=== PATIENT | female | born 1965 | race Caucasian/White ===

== ENCOUNTER 2017-04-07 15:54 | Observation (INO) | payer BC, OTHER ==
[2017-04-07] VITALS (9 sets, daily range): BP systolic 110–152; BP diastolic 60–81; PULSE 69–92; RESP 18; TEMP 97.6–98.5; O2SAT 95–100
[~2017-04-07] VITALS: Ht 162.6 cm; Wt 100.0 kg
[~2017-04-07 15:54] MED LIST: AMBI10TA PO; BUSP15TA PO; CHLO25TA2 PO; DILT120C50 PO; LISI10TA3 PO; METH5TAB4 PO; XANA1TAB2 PO
--- NOTE | 2017-04-07 16:19 | PD ---
HPI Chief Complaint: Neuro Symptoms/ Deficits Time Seen by Provider: 16:15 Travel History International Travel<30 days: No Contact w/Intl Traveler<30days: No Traveled to known affect area: No History of Present Illness HPI 52 YO F with PMH of anxiety, HTN, current smoker presents to the ED for evaluation of a 4 day history of speech difficulties. The patient denies headaches, dizziness, vision changes, facial droop, unilateral weakness, fevers , chills, palpitations, chest pain, shortness of breath. She can identify no precipitating event. She states that she is able to think clearly, however unable to complete sentences or pronounce certain words. She states that when this happens she gets anxious which increases her symptoms. She states the symptoms onset gradually. She endorses compliance with her daily medications. She is followed by Dr. Elaine. [facility] Past Medical History Autoimmune Disease: No Cancer: No Cardiovascular Problems: Yes (HTN ) Endocrine: No Genitourinary: No Immune Disorder: No Neurologic: No Psychiatric: No Reproductive: No Respiratory: No Social History Tobacco Use: Yes (since age 20) Substance Use: No Allergies-Medications (Allergen,Severity, Reaction): Coded Allergies: atenolol (Unverified Allergy, Mild, itching, 04/07/17) Reported Meds & Prescriptions Reported Meds & Active Scripts Active Ambien (Zolpidem Tartrate) 10 Mg Tab 10 Mg PO HS PRN Buspirone (Buspirone HCl) 15 Mg Tab 15 Mg PO BID Reported Magnesium Gluconate 27 Mg (500 Mg) Tab 500 Mg PO DAILY Vitamin D3 (Cholecalciferol) 5,000 Unit Cap 5,000 Units PO DAILY Selenium 200 Mcg Tab 200 Mg PO DAILY Chlorthalidone 25 Mg Tab 25 Mg PO DAILY Cartia Xt (Diltiazem ER 24 HR) 120 Mg Caper 120 Mg PO DAILY Lisinopril 10 Mg Tab 10 Mg PO DAILY Methimazole 5 Mg Tab 5 Mg PO DAILY Review of Systems Except as stated in HPI: all other systems reviewed are Neg Physical Exam Narrative GENERAL: Well-nourished, well-developed obese white female in no acute distress. SKIN: Focused skin assessment warm/dry. HEAD: Normocephalic. Atraumatic. EYES: No scleral icterus. No injection or drainage. PERRLA. EOMI. NECK: Supple, trachea midline. No JVD or lymphadenopathy. CARDIOVASCULAR: Regular rate and rhythm without murmurs, gallops, or rubs. RESPIRATORY: Breath sounds clear and equal bilaterally. No accessory muscle use. GASTROINTESTINAL: Abdomen soft, non-tender, nondistended. Active bowel sounds MUSCULOSKELETAL: No cyanosis, or edema. NEUROLOGICAL: Awake and alert. Cranial nerves II through XII intact. Motor and sensory grossly within normal limits. Five out of 5 muscle strength in all muscle groups. The patient's speech is normal. However mid sentence she will stop speaking and trail off. BACK: Nontender without obvious deformity. No CVA tenderness. Data Data Last Documented VS Vital Signs Date Time Temp Pulse Resp B/P (MAP) Pulse Ox O2 Delivery O2 Flow Rate FiO2 04/07/17 18:39 74 18 111/69 (83) 100 Room Air 04/07/17 15:57 98.5 Orders Orders Complete Blood Count With Diff (04/07/17 16:17) Comprehensive Metabolic Panel (04/07/17 16:17) Magnesium (Mg) (04/07/17 16:17) Prothrombin Time / Inr (Pt) (04/07/17 16:17) Urinalysis - C+S If Indicated (04/07/17 16:17) Ct Brain W/O Iv Contrast(Rout) (04/07/17 16:17) Ecg Monitoring (04/07/17 16:17) Iv Access Insert/Monitor (04/07/17 16:17) Oximetry (04/07/17 16:17) Sodium Chloride 0.9% Flush (Ns Flush) (04/07/17 16:30) Electrocardiogram (04/07/17 ) Troponin I (04/07/17 16:27) Ckmb (Isoenzyme) Profile (04/07/17 16:27) Potassium Chloride (Kcl) (04/07/17 18:45) Admit Order (Ed Use Only) (04/07/17 18:43) Labs Laboratory Tests Test 04/07/17 16:25 04/07/17 18:37 White Blood Count 9.2 TH/MM3 Red Blood Count 4.79 MIL/MM3 Hemoglobin 16.3 GM/DL Hematocrit 45.5 % Mean Corpuscular Volume 94.9 FL Mean Corpuscular Hemoglobin 33.9 PG Mean Corpuscular Hemoglobin Concent 35.8 % Red Cell Distribution Width 13.1 % Platelet Count 198 TH/MM3 Mean Platelet Volume 9.8 FL Neutrophils (%) (Auto) 55.6 % Lymphocytes (%) (Auto) 36.6 % Monocytes (%) (Auto) 5.5 % Eosinophils (%) (Auto) 1.2 % Basophils (%) (Auto) 1.1 % Neutrophils # (Auto) 5.1 TH/MM3 Lymphocytes # (Auto) 3.4 TH/MM3 Monocytes # (Auto) 0.5 TH/MM3 Eosinophils # (Auto) 0.1 TH/MM3 Basophils # (Auto) 0.1 TH/MM3 CBC Comment DIFF FINAL Differential Comment Prothrombin Time 11.2 SEC Prothromb Time International Ratio 1.0 RATIO Blood Urea Nitrogen 12 MG/DL Creatinine 0.98 MG/DL Random Glucose 100 MG/DL Total Protein 8.1 GM/DL Albumin 4.3 GM/DL Calcium Level 9.5 MG/DL Magnesium Level 2.3 MG/DL Alkaline Phosphatase 101 U/L Aspartate Amino Transf (AST/SGOT) 17 U/L Alanine Aminotransferase (ALT/SGPT) 25 U/L Total Bilirubin 0.4 MG/DL Sodium Level 138 MEQ/L Potassium Level 3.2 MEQ/L Chloride Level 100 MEQ/L Carbon Dioxide Level 29.0 MEQ/L Anion Gap 9 MEQ/L Estimat Glomerular Filtration Rate 60 ML/MIN Total Creatine Kinase 97 U/L Troponin I LESS THAN 0.02 NG/ML Urine Color LIGHT-YELLOW Urine Turbidity CLEAR Urine pH 6.5 Urine Specific Calhoun 1.005 Urine Protein NEG mg/dL Urine Glucose (UA) NEG mg/dL Urine Ketones NEG mg/dL Urine Occult Blood NEG Urine Nitrite NEG Urine Bilirubin NEG Urine Urobilinogen LESS THAN 2.0 MG/DL Urine Leukocyte Esterase NEG Urine RBC LESS THAN 1 /hpf Urine WBC LESS THAN 1 /hpf Urine Squamous Epithelial Cells 1 /hpf Urine Amorphous Sediment RARE Microscopic Urinalysis Comment CULT NOT INDICATED MDM Medical Decision Making Medical Screen Exam Complete: Yes Emergency Medical Condition: Yes Differential Diagnosis anxiety versus TIA versus CVA versus other Narrative Course 52 YO F with PMH of anxiety, HTN, current smoker presents to the ED for evaluation of a 4 day history of aphasia. She can identify no precipitating event. She states that she is able to think clearly, however unable to complete sentences or pronounce certain words. She states that when this happens she gets anxious which increases her symptoms. She is followed by Dr. Elaine. Vitals reviewed. On exam the patient does seem somewhat aphasic and anxious about this. No focal neuro deficits noted. EKG rate 76, sinus rhythm. Incomplete RBBB. Normal axis. No ST changes. Reviewed by Dr. Castillo. Cardiac enzymes negative 1. CBC: WBC 9.2. Hemoglobin 16.3. Coags: INR 1.0. CMP: Potassium 3.2, replaced with 40 mEq orally. UA no culture indicated. CT brain: normal radiology read I spoke with the patient regarding the results of the workup. She does not want to be admitted this time. I explained the risk of ischemic stroke, carotid stenosis. After a brief discussion the patient decided that she would stay for TIA workup. I discussed with Dr. Wiggins, resident, who agrees to accept the patient to the medicine service under Dr. Rueda. Please see medicine notes for disposition. Disposition: 07 AGAINST MEDICAL ADVICE Condition: Stable Caron Kim Apr 07, 2017 16:19
[2017-04-07] MEDS ORDERED: SODIUM CHLORIDE 0.9% FLUSH 10 ML FLUSH IVF PRN (16:30)
[2017-04-07] MEDS ORDERED: MAGN500T5 PO (16:32)
[2017-04-07] MEDS ORDERED: CHOL5000 PO (16:32)
[2017-04-07] MEDS ORDERED: CHLO25TA2 PO (16:32)
[2017-04-07] MEDS ORDERED: CART120C PO (16:32)
[2017-04-07] MEDS ORDERED: SELE200T17 PO (16:32)
[2017-04-07 16:36] LABS: AUTOMATED NEUTROPHIL # 5.1 TH/MM3 (1.8-7.7); BASOPHIL # 0.1 TH/MM3 (0-0.2); BASOPHIL % 1.1 % (0.0-2.0); EOSINOPHIL # 0.1 TH/MM3 (0-0.4); EOSINOPHIL % 1.2 % (0.0-4.0); HEMATOCRIT 45.5 % (35.0-46.0); HEMO FLAGS DIFF FINAL; LYMPH % 36.6 % (9.0-44.0); LYMPHOCYTE # 3.4 TH/MM3 (1.0-4.8); MEAN CELL VOLUME 94.9 FL (80.0-100.0); MEAN CORPUSCULAR HEMOGLOBIN 33.9 PG (27.0-34.0); MEAN CORPUSCULAR HGB CONC 35.8 % (32.0-36.0); MONO % 5.5 % (0.0-8.0); NEUT % 55.6 % (16.0-70.0); PLATELET COUNT 198 TH/MM3 (150-450); RED BLOOD COUNT 4.79 MIL/MM3 (4.00-5.30); RED CELL DISTRIBUTION WIDTH 13.1 % (11.6-17.2); WHITE BLOOD COUNT 9.2 TH/MM3 (4.0-11.0)
[2017-04-07 16:43] LABS: PROTHROMBIN TIME - PATIENT 11.2 SEC (9.8-11.6)
[2017-04-07 16:53] LABS: ALT (GPT) 25 U/L (10-53); ANION GAP 9 MEQ/L (5-15); AST (GOT) 17 U/L (15-37); BLOOD UREA NITROGEN 12 MG/DL (7-18); CHLORIDE 100 MEQ/L (98-107); GLOMERULAR FILTRATION RATE 60 ML/MIN (>89); MAGNESIUM 2.3 MG/DL (1.5-2.5); POTASSIUM 3.2 MEQ/L (3.5-5.1); SODIUM (NA) 138 MEQ/L (136-145)
[2017-04-07 16:56] LABS: ALKALINE PHOSPHATASE 101 U/L (45-117); TOTAL BILIRUBIN ADULT 0.4 MG/DL (0.2-1.0)
[2017-04-07 17:04] LABS: CREATINE KINASE 97 U/L (26-192)
--- NOTE | 2017-04-07 17:20 | RADRPT ---
EXAM DATE/TIME: 04/07/2017 16:57 [facility] COMPARISON: No previous studies available for comparison. INDICATIONS : Dizziness with slurred speech. RADIATION DOSE: 30.82 CTDIvol (mGy) MEDICAL HISTORY : Hypertension. SURGICAL HISTORY : Hysterectomy. ENCOUNTER: Initial ACUITY: 1 day PAIN SCALE: 0/10 LOCATION: cranial TECHNIQUE: Multiple contiguous axial images were obtained of the head. Using automated exposure control and adj ustment of the mA and/or kV according to patient size, radiation dose was kept as low as reasonably a chievable to obtain optimal diagnostic quality images. DICOM format image data is available electro nically for review and comparison. FINDINGS: CEREBRUM: The ventricles are normal for age. No evidence of midline shift, mass lesion, hemorrhage or acute in farction. No extra-axial fluid collections are seen. POSTERIOR FOSSA: The cerebellum and brainstem are intact. The 4th ventricle is midline. The cerebellopontine angle i s unremarkable. EXTRACRANIAL: The visualized portion of the orbits is intact. SKULL: The calvaria is intact. No evidence of skull fracture. CONCLUSION: Normal examination. Kenney Estrella Jr., MD on April 07, 2017 at 17:18 Board Certified Radiologist. This report was verified electronically.
[2017-04-07] MEDS ORDERED: POTASSIUM CHLORIDE 20 MEQ CONTROLLED RELEASE TAB PO ONE (18:45)
[2017-04-07 18:51] LABS: BLOOD, URINE NEG (NEG); COMMENT (UR) CULT NOT INDICATED; CULTURE IF INDICATED CULT NOT INDICATED; GLUCOSE,URINE NEG (NEG); KETONE, URINE NEG (NEG); NITRITE,URINE NEG (NEG); PH, URINE 6.5 (5.0-8.5); SQUAMOUS EPITHELIAL CELL URINE 1 /hpf (0-5); URINE COLOR LIGHT-YELLOW (YELLW/STRAW)
--- NOTE | 2017-04-07 18:55 | HHI.HP ---
[facility] Service Family Medicine Primary Care Physician Unknown Admission Diagnosis aphasia Diagnoses: International Travel<30 Days: No Contact w/Intl Traveler<30days: No Known Affected Area: No History of Present Illness 52 year old female presents with Broca aphasia. Symptoms started 3 days ago. She feels like she gets "tongue tied". She knows what she wants to say, and the words are in her mind, but she cannot get them out of her mouth. She will often start a sentence but then have an inability to complete the sentence. The onset was gradual and she feels like it is not getting better. She has no other symptoms with it and otherwise feels fine. She has no blurry vision, headaches, upper or lower extremity weakness or numbness/tingling, difficulty understanding speech. She is able to text message without difficulty. She can walk and drive without difficulty. She has no runny nose, sore throat, weight loss, night sweats, chest pain, shortness of breath, palpitations, abdominal pain, nausea, vomiting, diarrhea, calf tenderness or swelling. She has no history of seizures. She does not feel generally weak and unwell. She states she has no other symptoms besides the aphasia. She does not report a history of arrhythmias. She does have hyperthyroidism and hypertension, and is also a smoker. Her hyperthyroidism is controlled with methimazole. (Jalen Wiggins MD R3) Review of Systems Constitutional: DENIES: Fever, Weight gain, Weight loss, Chills, Change in appetite, Night Sweats Endocrine: DENIES: Polyuria, Polyphagia Eyes: DENIES: Blurred vision, Diplopia, Vision loss, Double Vision Ears, nose, mouth, throat: DENIES: Tinnitus, Nasal discharge, Ear Pain, Running Nose, Odynophagia Respiratory: DENIES: Cough, Wheezing, Sputum production, Shortness of breath Cardiovascular: DENIES: Chest pain, Syncope Gastrointestinal: DENIES: Abdominal pain, Black stools, Bloody stools, Constipation, Diarrhea, Nausea, Vomiting, Difficulty Swallowing Genitourinary: DENIES: Urinary incontinence, Dysuria Musculoskeletal: DENIES: Joint pain, Stiffness, Joint Swelling Integumentary: DENIES: Rash Hematologic/lymphatic: DENIES: Lymphadenopathy Immunologic/allergic: DENIES: Eczema Neurologic: COMPLAINS OF: Speech Problems, DENIES: Headache, Paresthesias, Seizures, Tremor, Poor Balance Psychiatric: COMPLAINS OF: Anxiety, DENIES: Mood changes, Depression, Hallucinations, Agitation (Jalen Wiggins MD R3) Past Family Social History Past Medical History hyperthyroidism: Graves disease, on methimazole hypertension Anxiety Smoker Obesity: BMI 37.8 Past Surgical History Cervical disk surgery C7 Reported Medications Reported Meds & Active Scripts Active Ambien (Zolpidem Tartrate) 10 Mg Tab 10 Mg PO HS PRN Buspirone (Buspirone HCl) 15 Mg Tab 15 Mg PO BID Reported Magnesium Gluconate 27 Mg (500 Mg) Tab 500 Mg PO DAILY Vitamin D3 (Cholecalciferol) 5,000 Unit Cap 5,000 Units PO DAILY Selenium 200 Mcg Tab 200 Mg PO DAILY Chlorthalidone 25 Mg Tab 25 Mg PO DAILY Cartia Xt (Diltiazem ER 24 HR) 120 Mg Caper 120 Mg PO DAILY Lisinopril 10 Mg Tab 10 Mg PO DAILY Methimazole 5 Mg Tab 5 Mg PO DAILY (Jalen Wiggins MD R3) Allergies: Coded Allergies: atenolol (Unverified Allergy, Mild, itching, 04/07/17) Active Ordered Medications Inpatient Medications Aspirin (Aspirin Chew) 81 mg DAILY PO Last administered on 04/07/17 20:19; Start 04/07/17 at 19:45 Bisacodyl (Dulcolax Supp) 10 mg DAILY PRN RECTAL SEVERE CONSITIPATION; Start 04/07/17 at 19:45 Enalaprilat (Vasotec Inj) 1.25 mg Q4H PRN IV PUSH For SBP > 220 or DBP > 120; Start 04/07/17 at 19:45 Enoxaparin Sodium (Lovenox Inj) 40 mg Q24H SQ Last administered on 04/07/17 20:20; Start 04/07/17 at 20:00 Lactulose (Lactulose Liq) 30 ml DAILY PRN PO SEVERE CONSITIPATION; Start 04/07 at 19:45 Magnesium Hydroxide (Milk Of Magnesia Liq) 30 ml Q12H PRN PO Mild constipation ; Start 04/07/17 at 19:45 Naloxone HCl (Narcan Inj) 0.4 mg UNSCH PRN IV PUSH SEE LABEL COMMENTS; Start 04/07/17 at 19:45 Potassium Chloride (KCl) 40 meq ONCE ONCE PO Last administered on 04/07/17 18:55; Start 04/07/17 at 18:45; Stop 04/07/17 at 18:46; Status DC Pravastatin Sodium (Pravachol) 40 mg HS PO Last administered on 04/07/17 21: 08; Start 04/07/17 at 21:00 Senna/Docusate Sodium (Kim-Colace) 1 tab BID PO ; Start 04/07/17 at 21:00 Sennosides (Senokot) 17.2 mg Q12H PRN PO Moderate constipation; Start at 19:45 Sodium Chloride (NS Flush) 2 ml BID IV FLUSH Last administered on 04/07/17 21 :08; Start 04/07/17 at 21:00 Family History Mom: heart disease Father: of heart attack age 57 No strokes or aneurysms Sister with diabetes Social History Smokes 1/2 PPD Alcohol: None Drug use: None Lives with Employment: none From [place], moved here 5 years ago Moved here for work Used to work as restaurant greeter (Jalen Wiggins MD R3) Physical Exam Vital Signs Vital Signs Date Time Temp Pulse Resp B/P (MAP) Pulse Ox O2 Delivery O2 Flow Rate FiO2 04/07/17 18:39 74 18 111/69 (83) 100 Room Air 04/07/17 16:26 85 18 98 Room Air 04/07/17 16:17 99 20 97 Room Air 04/07/17 16:17 92 18 152/72 (98) 97 Room Air 04/07/17 16:13 84 18 152/72 (98) 97 04/07/17 15:57 98.5 88 18 149/75 (99) 97 Room Air Physical Exam General: Sitting up in a chair, no distress Skin: No rashes or lesions HEENT: Normocephalic, no conjunctivitis, no nasal discharge, normal pharynx Neck: No thyromegaly or lymphadenopathy CV: RRR, no murmurs, rubs, or gallops. Normal pulses. Normal capillary refill. BP normal while in room. Lungs: CTAB, no respiratory distress, breathing room air Abdomen: Soft, nontender, nondistended, normal bowel sounds, no masses palpated Ext: No swelling or calf tenderness, negative Amador's sign Neuro: Awake, alert, CN intact, EOMI, PERRLA. Strength and sensation are normal distally. She has a normal gait, normal tandem walk, normal heel to pineda, normal finger to nose, negative Romberg test. She has no difficulty understanding speech. She has noted difficulty producing speech. Specifically, she often starts a sentence and gets stuck on a particular word she wants to say , but cannot seem to get it out. She gets noticeably frustrated when this happens. She states she knows what she wants to stay but cannot seem to get it out. Laboratory Laboratory Tests Test 04/07/17 16:25 04/07/17 18:37 White Blood Count 9.2 Red Blood Count 4.79 Hemoglobin 16.3 Hematocrit 45.5 Mean Corpuscular Volume 94.9 Mean Corpuscular Hemoglobin 33.9 Mean Corpuscular Hemoglobin Concent 35.8 Red Cell Distribution Width 13.1 Platelet Count 198 Mean Platelet Volume 9.8 Neutrophils (%) (Auto) 55.6 Lymphocytes (%) (Auto) 36.6 Monocytes (%) (Auto) 5.5 Eosinophils (%) (Auto) 1.2 Basophils (%) (Auto) 1.1 Neutrophils # (Auto) 5.1 Lymphocytes # (Auto) 3.4 Monocytes # (Auto) 0.5 Eosinophils # (Auto) 0.1 Basophils # (Auto) 0.1 CBC Comment DIFF FINAL Differential Comment Prothrombin Time 11.2 Prothromb Time International Ratio 1.0 Blood Urea Nitrogen 12 Creatinine 0.98 Random Glucose 100 Total Protein 8.1 Albumin 4.3 Calcium Level 9.5 Magnesium Level 2.3 Alkaline Phosphatase 101 Aspartate Amino Transf (AST/SGOT) 17 Alanine Aminotransferase (ALT/SGPT) 25 Total Bilirubin 0.4 Sodium Level 138 Potassium Level 3.2 Chloride Level 100 Carbon Dioxide Level 29.0 Anion Gap 9 Estimat Glomerular Filtration Rate 60 Total Creatine Kinase 97 Troponin I LESS THAN 0.02 (Jalen Wiggins MD R3) Result Diagram: 04/07/17 1625 04/07/17 1625 Imaging Last [address] 04/07/17 1617 Signed Impressions: Service Date/Time: Friday, April 07, 2017 16:57 - CONCLUSION: Normal examination. Kenney Estrella Jr., MD (Jalen Wiggins MD R3) Septic Shock Reassessment Heart: Regular rate and rhythm Lungs: Clear Skin: Warm Capillary Refill: <2 seconds (Jalen Wiggins MD R3) Caprini VTE Risk Assessment Caprini VTE Risk Assessment: Mod/High Risk (score >= 2) Caprini Risk Assessment Model Point Value = 1 Point Value = 2 Point Value = 3 Point Value = 5 Age 41-60 Minor surgery BMI > 25 kg/m2 Swollen legs Varicose veins or History of unexplained or recurrent spontaneous Oral contraceptives or hormone replacement Sepsis (< 1 month) Serious lung disease, including pneumonia (< 1 month) Abnormal pulmonary function Acute myocardial infarction Congestive heart failure (< 1 month) History of inflammatory bowel disease Medical patient at bed rest Age 61-74 Arthroscopic surgery Major open surgery (> 45 min) Laparoscopic surgery (> 45 min) Malignancy Confined to bed (> 72 hours) Immobilizing plaster cast Central venous access Age >= 75 History of VTE Family history of VTE Factor V Leiden Prothrombin [id number] Lupus anticoagulant Anticardiolipin antibodies Elevated serum homocysteine Heparin-induced thrombocytopenia Other congenital or acquired thrombophilia Stroke (< 1 month) Elective arthroplasty Hip, pelvis, or leg fracture Acute spinal cord injury (< 1 month) Prophylaxis Regimen Total Risk Factor Score Risk Level Prophylaxis Regimen 0-1 Low Early ambulation 2 Moderate Order ONE of the following: *Sequential Compression Device (SCD) *Heparin 5000 units SQ BID 3-4 Higher Order ONE of the following medications: *Heparin 5000 units SQ TID *Enoxaparin/Lovenox 40 mg SQ daily (WT < 150 kg, CrCl > 30 mL/min) *Enoxaparin/Lovenox 30 mg SQ daily (WT < 150 kg, CrCl > 10-29 mL/min) *Enoxaparin/Lovenox 30 mg SQ BID (WT < 150 kg, CrCl > 30 mL/min) AND/OR *Sequential Compression Device (SCD) 5 or more Highest Order ONE of the following medications: *Heparin 5000 units SQ TID (Preferred with Epidurals) *Enoxaparin/Lovenox 40 mg SQ daily (WT < 150 kg, CrCl > 30 mL/min) *Enoxaparin/Lovenox 30 mg SQ daily (WT < 150 kg, CrCl > 10-29 mL/min) *Enoxaparin/Lovenox 30 mg SQ BID (WT < 150 kg, CrCl > 30 mL/min) AND *Sequential Compression Device (SCD) (Jalen Wiggins MD R3) Assessment and Plan Assessment and Plan 52 year old female with history of hyperthyroidism, hypertension, and smoking presents with 3 day history of Broca aphasia Code Status FULL CODE Discussed Condition With Will discuss with Dr. Patricio (Jalen Wiggins MD R3) Attending Attestation THIS CASE WAS DISCUSSED WITH THE RESIDENT PHYSICIAN. I HAVE REVIEWED THE RECORD AND AGREE WITH THE ABOVE NOTE AND PLAN OF CARE WAS DISCUSSED. I HAVE AUTHORIZED THE ORDER FOR PLACEMENT IN OUT-PATIENT OBSERVATION STATUS. (Flower Patricio MD) Problem List: (1) Broca dysphasia ICD Codes: R47.02 - Dysphasia Status: Acute Plan: 3 day history of Broca aphasia, concerning for acute cerebrovascular accident. CT head without acute abnormality. - Monitor vital signs and neurological status - Obtain MRI/MRA of the brain - Consult neurology, appreciate recommendations - Aspirin 81 mg daily - Start atorvastatin 40 mg daily - Bedside swallow evaluation before diet, then heart healthy diet - Cardiac telemetry to detect any underlying arrhythmias - Echocardiogram to assess cardiac function and structure - Check lipid panel - Check basic coag panel - Counseling on smoking, healthy diet, elevated BMI - Speech therapy consulted for aphasia - Physical therapy/occupational therapy consulted (2) Hypertension ICD Codes: I10 - Hypertension Status: Chronic Plan: - Diltiazem 120 mg daily - Lisinopril 10 mg daily (3) Smoker ICD Codes: F17.200 - Nicotine dependence, unspecified, uncomplicated Status: Chronic Plan: 1/2 pack per day smoker - Counseling to quit smoking, especially with possible acute stroke (4) Obesity (BMI 30-39.9) ICD Codes: E66.9 - Obesity, unspecified Status: Chronic Plan: Counseling on nutrition and exercise in context of possible acute stroke (5) Hyperthyroidism ICD Codes: E05.90 - Thyrotoxicosis, unspecified without thyrotoxic crisis or storm Status: Chronic Plan: - Check TSH - Continue methimazole 5 mg daily (6) Anxiety ICD Codes: F41.9 - Anxiety Status: Chronic Plan: - Continue Buspar 15 mg bid (7) Nutrition, metabolism, and development symptoms ICD Codes: R63.8 - Other symptoms and signs concerning food and fluid intake Status: Acute Plan: Heart healthy diet NPO until passes swallow test Speech therapy on board Electrolytes normal No indication for IV fluids (8) No contraindication to deep vein thrombosis (DVT) prophylaxis ICD Codes: Z78.9 - Other specified health status Status: Acute Plan: Enoxaparin 40 mg daily Encourage ambulation Work with physical therapy (Jalen Wiggins MD R3) Jalen Wiggins MD R3 Apr 07, 2017 18:55 Flower Patricio MD Apr 08, 2017 11:54
[2017-04-07] MEDS ORDERED: ENALAPRILAT 1.25 MG/ML VIAL IV PUSH PRN (19:45)
[2017-04-07] MEDS ORDERED: MAGNESIUM HYDROXIDE SUSP 30 ML CUP PO PRN (19:45)
[2017-04-07] MEDS ORDERED: SENNOSIDES 8.6 MG TAB PO PRN (19:45)
[2017-04-07] MEDS ORDERED: BISACODYL 10 MG SUPP RECTAL PRN (19:45)
[2017-04-07] MEDS ORDERED: NALOXONE HCL 0.4 MG/ML AMP IV PUSH PRN (19:45)
[2017-04-07] MEDS ORDERED: LACTULOSE SYRUP 20 GM/30 ML CUP PO PRN (19:45)
[2017-04-07] MEDS ORDERED: SODIUM CHLORIDE 0.9% FLUSH 10 ML FLUSH IV FLUSH PRN (19:45)
[2017-04-07] MEDS ORDERED: ENOXAPARIN SODIUM 40 MG/0.4 ML SYRINGE SQ SCH (20:00)
[2017-04-07] MEDS: ASPIRIN 81 MG CHEW TAB PO SCH (20:19)
[2017-04-07] MEDS: PRAVASTATIN SOD 40 MG TAB PO SCH ×2 (21:00→21:08)
[2017-04-07] MEDS: DOCUSATE SODIUM 50 MG/SENNA 8.6 MG TAB PO SCH (21:00)
[2017-04-07] MEDS: SODIUM CHLORIDE 0.9% FLUSH 10 ML FLUSH IV FLUSH SCH (21:08)
[2017-04-07] MEDS ORDERED: ZOLPIDEM TARTRATE 10 MG TAB PO PRN (21:15)
[2017-04-07] MEDS ORDERED: PILL SPLITTER OTHER PRN (22:00)
--- NOTE | 2017-04-07 22:42 | RADRPT ---
EXAM DATE/TIME: 04/07/2017 21:52 [facility] COMPARISON: No previous studies available for comparison. INDICATIONS : CVA. Expressive aphasia. MEDICAL HISTORY : None. SURGICAL HISTORY : Discectomy, cervical. ENCOUNTER: Subsequent ACUITY: 3 day PAIN SCORE: 0/10 LOCATION: cranial TECHNIQUE: Multiplanar, multisequence MRI of the brain was performed without contrast. FINDINGS: CEREBRUM: The ventricles are normal for age. No evidence of midline shift, mass lesion, hemorrhage or acute in farction. No extraaxial fluid collections are seen. The pituitary gland and suprasellar cistern are normal in configuration. WHITE MATTER: No significant signal abnormalities are seen in the white matter. POSTERIOR FOSSA: The cerebellum and brainstem are intact. The 4th ventricle is midline. The cerebellopontine angle is unremarkable. The cerebellar tonsils are normal in position. DIFFUSION IMAGING: No focal areas of restricted diffusion are seen. No evidence of acute infarction. EXTRACRANIAL: The visualized portions of the orbits and paranasal sinuses are unremarkable. CONCLUSION: Negative noncontrast MRI of the brain; no evidence of acute infarction. Kenney Sihna MD on April 07, 2017 at 22:40 Board Certified Radiologist. This report was verified electronically.
--- NOTE | 2017-04-07 22:58 | RADRPT ---
EXAM DATE/TIME: 04/07/2017 21:52 [facility] COMPARISON: No previous studies available for comparison. INDICATIONS : Stroke. Expressive aphasia. MEDICAL HISTORY : None. SURGICAL HISTORY : Discectomy, cervical. ENCOUNTER: Subsequent ACUITY: 3 day PAIN SCORE: 0/10 LOCATION: cranial Please note a normal MRA of the brain does not entirely exclude the possibility of a small aneurysm, nor the possibility of distal intracranial vessel disease. TECHNIQUE: 3D time of flight MRA was performed. Source images, multiplanar STS MIP, and 3D volume MIP reconstru ctions were reviewed. FINDINGS: There is excellent visualization of the major intracranial arteries out to the second-order branch ve ssels. There is no evidence for aneurysm, vessel truncation or stenosis, and no evidence for vascula r malformation. No flow seen in the anterior communicating artery or right PCOM. CONCLUSION: 1. No evidence of vessel truncation or aneurysm. 2. Incomplete red devil of [place]. Kenney Sinha MD on April 07, 2017 at 22:55 Board Certified Radiologist. This report was verified electronically.
[2017-04-08 03:47] VITALS: BP 106/59; PULSE 66; RESP 18; TEMP 98.2; O2SAT 96
[2017-04-08 05:20] LABS: AUTOMATED NEUTROPHIL # 2.7 TH/MM3 (1.8-7.7); BASOPHIL # 0.1 TH/MM3 (0-0.2); BASOPHIL % 1.8 % (0.0-2.0); EOSINOPHIL # 0.2 TH/MM3 (0-0.4); EOSINOPHIL % 2.1 % (0.0-4.0); HEMATOCRIT 40.5 % (35.0-46.0); HEMO FLAGS DIFF FINAL; LYMPH % 54.4 % (9.0-44.0); LYMPHOCYTE # 4.2 TH/MM3 (1.0-4.8); MEAN CELL VOLUME 95.1 FL (80.0-100.0); MEAN CORPUSCULAR HEMOGLOBIN 33.5 PG (27.0-34.0); MEAN CORPUSCULAR HGB CONC 35.3 % (32.0-36.0); MONO % 6.6 % (0.0-8.0); NEUT % 35.1 % (16.0-70.0); PLATELET COUNT 179 TH/MM3 (150-450); RED BLOOD COUNT 4.26 MIL/MM3 (4.00-5.30); RED CELL DISTRIBUTION WIDTH 13.3 % (11.6-17.2); WHITE BLOOD COUNT 7.8 TH/MM3 (4.0-11.0)
[2017-04-08 06:11] LABS: ALKALINE PHOSPHATASE 83 U/L (45-117); ALT (GPT) 21 U/L (10-53); ANION GAP 9 MEQ/L (5-15); AST (GOT) 12 U/L (15-37); BICARBONATE 26.1 MEQ/L (21.0-32.0); BLOOD UREA NITROGEN 12 MG/DL (7-18); CHLORIDE 103 MEQ/L (98-107); GLOMERULAR FILTRATION RATE 75 ML/MIN (>89); HDL CHOLESTEROL 52.3 MG/DL (40.0-60.0); LDL CHOLESTEROL 117 MG/DL (0-99); POTASSIUM 3.6 MEQ/L (3.5-5.1); SODIUM (NA) 138 MEQ/L (136-145); TOTAL BILIRUBIN ADULT 0.6 MG/DL (0.2-1.0)
[2017-04-08 07:30] VITALS: PULSE 74
[2017-04-08 07:46] VITALS: BP 126/70; PULSE 69; RESP 18; TEMP 98.1; O2SAT 97
[2017-04-08] MEDS ORDERED: SELENIUM 200 MG PO SCH (09:00)
[2017-04-08] MEDS ORDERED: NON-FORMULARY DRUG (Magnesium Gluconate 500 MG) PO SCH (09:00)
[2017-04-08] MEDS ORDERED: METHIMAZOLE 5 MG TAB PO SCH (09:00)
[2017-04-08] MEDS ORDERED: busPIRone HCL 5 MG TAB PO SCH (09:00)
[2017-04-08] MEDS ORDERED: CHOLECALCIFEROL (VIT D3) 5000 UNIT CAP PO SCH (09:00)
[2017-04-08] MEDS ORDERED: NON-FORMULARY DRUG PO SCH (09:00)
[2017-04-08] MEDS ORDERED: DILTIAZEM-CD 120 MG CAP ER PO SCH (09:00)
[2017-04-08] MEDS ORDERED: LISINOPRIL 10 MG TAB PO SCH (09:00)
[2017-04-08] MEDS: ASPIRIN 81 MG CHEW TAB PO SCH (09:27)
[2017-04-08] MEDS: SODIUM CHLORIDE 0.9% FLUSH 10 ML FLUSH IV FLUSH SCH (09:29)
[2017-04-08] MEDS: DOCUSATE SODIUM 50 MG/SENNA 8.6 MG TAB PO SCH (09:37)
--- NOTE | 2017-04-08 10:13 | HHI.FPPN ---
Problem Problem List: (1) Speaking difficulty (2) Hypertension (3) Insomnia (4) Anxiety Subjective Subjective 52 y/o woman with history of 3 days of some difficulty in saying the words she is thinking. When not able to say the word she is able to write or text the correct word. She was admitted for observation and neurologic workup for this issue. She has no h/o CVA and she has no other neurologic symptoms -- denies weakness, numbness, paraesthesias, change in vision, change in gait, no memory issues. She denies any systemic illness symptoms like fever/chills/sweats and denies any neurologic history. At the time of this evaluation today she is symptom free. Has no concerns and her speech is back to normal. ROS negative except as listed above Past Medical History hyperthyroidism: Graves disease, on methimazole hypertension Anxiety Smoker Obesity: BMI 37.8 Past Surgical History Cervical disk surgery C7 SOCIAL: tobacco 1/2ppd, no ETOH or illicits not currently working Please see the resident H and P for further details regarding the PMH/PSH/ SOCIAL history Hospital Objective Objective Last Impressions Carotid Artery Ultrasound 04/08/17 0000 Signed Impressions: Service Date/Time: Saturday, April 08, 2017 10:06 - CONCLUSION: 1. No significant carotid flow-limiting stenosis. 2. Antegrade vertebral artery flow bilaterally. Luis Angel MD Head CT 04/07/17 1617 Signed Impressions: Service Date/Time: Friday, April 07, 2017 16:57 - CONCLUSION: Normal examination. Kenney Estrella Jr., MD Head Magnetic Resonance Angiography 04/07/17 0000 Signed Impressions: Service Date/Time: Friday, April 07, 2017 21:52 - CONCLUSION: 1. No evidence of vessel truncation or aneurysm. 2. Incomplete osage of [place]. Kenney Sinha MD Brain MRI 04/07/17 0000 Signed Impressions: Service Date/Time: Friday, April 07, 2017 21:52 - CONCLUSION: Negative noncontrast MRI of the brain; no evidence of acute infarction. Kenney Sinha MD Laboratory Tests - Abnormals Test 04/07/17 16:25 04/07/17 18:37 04/08/17 04:15 Hemoglobin 16.3 GM/DL Potassium Level 3.2 MEQ/L Estimat Glomerular Filtration Rate 60 ML/MIN 75 ML/MIN Troponin I LESS THAN 0.02 NG/ML Lymphocytes (%) (Auto) 54.4 % Aspartate Amino Transf (AST/SGOT) 12 U/L Triglycerides Level 191 MG/DL Cholesterol Level 207 MG/DL LDL Cholesterol 117 MG/DL Vital Signs 04/07/17 04/07/17 04/07/17 04/07/17 15:57 16:13 16:17 16:17 Temp 98.5 Pulse 88 84 92 99 Resp 18 18 18 20 B/P (MAP) 149/75 (99) 152/72 (98) 152/72 (98) Pulse Ox 97 97 97 97 O2 Delivery Room Air Room Air Room Air 04/07/17 04/07/17 04/07/17 04/07/17 16:26 18:39 20:40 20:48 Pulse 85 74 75 Resp 18 18 18 B/P (MAP) 111/69 (83) 122/64 (83) Pulse Ox 98 100 97 O2 Delivery Room Air Room Air Room Air 04/07/17 04/07/17 04/07/17 04/08/17 21:02 23:24 23:44 03:47 Temp 98.2 97.6 98.2 Pulse 77 78 69 66 Resp 18 18 18 B/P (MAP) 135/81 (99) 110/60 (77) 106/59 (75) Pulse Ox 96 95 96 04/08/17 04/08/17 07:30 07:46 Temp 98.1 Pulse 74 69 Resp 18 B/P (MAP) 126/70 (88) Pulse Ox 97 Physical exam GEN: normally nourished, in NAD. EYES: conjunctiva normal, PERRLA, EOMI. ENT: Mouth and pharynx normal. NECK: thyroid midline, carotids symmetrical. LUNGS: clear A-P, respiratory effort is normal. CARDIOVASCULAR: RR without murmur or gallop. No significant edema. GI/ABD: soft without masses, without organomegaly. NEURO: No focal deficits. Gait is normal, Normal CN, normal strength all extremities, normal speech, normal mentation SKIN: color normal, no rashes noted. HEME/LYMPH: no bruising, petechia or significant adenopathy MUSC: back is normal in appearance. Extremities are normal in appearance. PSYCH/MENTAL STATUS: Alert and oriented x 3. Assessment Assessment: (1) Speaking difficulty Plan: Originally on admission felt this was likely a Broca's Aphasia but it was not classic as her writing was preserved and she had no issues with comprehension, naming or repetition. She would only get "Stuck" on a word and get frustrated. CT brain, Noncontrast MRI brain and carotids are all negative. EEG was done but result is still pending. I anticipate this will be negative as well because there were no stroke like symptoms clinically. Suspect this might be related to anxiety but do not feel this represents a TIA or a CVA. Neurology has been consulted and has seen the patient as well and does not see any true neurologic process at this time. EEG result pending -- if normal anticipate d/c today with fu with her PCP. Since she is 52 y/o with HTN, obesity and tobaccoism agree with ASA and statin and recommend she continue this as an outpatient with further management by her PCP. Patient was instructed to return to ED or see her PCP if she has any return of her symptoms after discharge. Patient was counselled on tobacco cessation -- she is precontemplative at this time. DWPT the need to quit to decrease her cardiovascular risk and gave her several options. She is not interested in quitting at this time (2) Hypothyroid Plan: Stable -- cont her home meds (3) Hypertension Plan: Stable -- continue her home meds (4) Insomnia Plan: Stable -- continue her home meds (5) Anxiety Plan: This appears to be stable -- she used to be on benzo in the past and has changed to Buspar. DWPT that her symptoms may have been related to anxiety and suggest she fu with her PCP for further management/adjustments (6) Obesity (BMI 30-39.9) Plan: Counselled on lifestyle changes Assessment 52 year old woman with speech issue that has resolved. Neurologic workup has been negative. Suspect this was due to underlying anxiety. PLAN PLAN Patient was seen and dw the resident team -- Dr. Wiggins, Dr. Howard, Dr. Abisai Patricio,Flower Duong MD Apr 08, 2017 10:13
--- NOTE | 2017-04-08 10:51 | RADRPT ---
EXAM DATE/TIME: 04/08/2017 10:06 [facility] COMPARISON: No previous studies available for comparison. INDICATIONS : Slurred speech. MEDICAL HISTORY : Hypercholesterolemia. Hypertension. Hyperthyroidism. SURGICAL HISTORY : Hysterectomy. Orthopedic surgery. ENCOUNTER: Initial ACUITY: 1 day PAIN SCORE: 0/10 LOCATION: Bilateral neck PEAK SYSTOLIC VELOCITIES (cm/sec): ICA/CCA RATIO: Right: 0.9 Left: 0.9 ICA: Right: 98 Left: 96 CCA: Right: 110 Left: 106 ECA: Right: 111 Left: 92 VERTEBRAL: Right: 44 antegrade Left: 52 antegrade Elevated flow velocities and ICA/CCA ratios have been found to correlate with increased degrees of vessel stenosis, calculated as percentage of diameter relative to a normal segment of distal ICA/CCA FINDINGS: RIGHT CAROTID: No significant stenosis is visualized. The waveforms are within normal limits. LEFT CAROTID: No significant stenosis is visualized. The waveforms are within normal limits. VERTEBRAL ARTERIES: Antegrade flow is seen in both vertebral arteries. MISCELLANEOUS: None. CONCLUSION: 1. No significant carotid flow-limiting stenosis. 2. Antegrade vertebral artery flow bilaterally. Luis Angel MD on April 08, 2017 at 10:46 Board Certified Radiologist. This report was verified electronically.
[2017-04-08 11:24] VITALS: BP 123/65; PULSE 84; RESP 19; TEMP 98; O2SAT 94
[2017-04-08 12:00] VITALS: PULSE 79
[2017-04-08 12:30] LABS: HEMOGLOBIN A1a 0.8 %; HEMOGLOBIN Ao 85.7 %; HEMOGLOBIN F 1.1 %; HEMOGLOBIN LA1C 1.9 %; HEMOGLOBIN P3 3.6 %
--- NOTE | 2017-04-08 13:06 | MB ---
cc: CYNTHIA TONY DATE OF CONSULTATION 04/08/2017 REASON FOR CONSULTATION Stroke/"aphasia". HISTORY OF PRESENT ILLNESS Ms. Worley is a 52-year-old female who presented to the [facility] Emergency Room because of symptoms of difficulty finding words and occasional slurring of speech of four days' duration. The patient states that she wakes up normal but then as the day goes by she has difficulty in finding the right words which becomes worse later at night and this is related to anxiety. She denies headache, double vision, blurred vision, facial numbness , droopiness of the face, disorientation during the time where she has difficulty in saying words. However, the patient and her friend who is at the bedside state that she can express herself by texting while she cannot say the words. Texting is limited according to the friend. Denies any weakness of an extremity and denies similar episodes in the past. The patient was on Xanax for a long time for chronic anxiety. She decided to stop the Xanax almost three months ago and she was on 0.5 mg three times daily p.r.n. Her usual daily dose was 1-2 tablets per [address]. Head CT scan that was done in the emergency room was unremarkable. Her vital signs were within normal limits and review of the lab revealed hypokalemia of 3.2 and abnormal lipid profile. The patient was admitted for TIA/stroke workup. REVIEW OF SYSTEMS Negative except as stated in the HPI. Past Medical History 8 1. Hyperthyroidism, Graves disease on methimazole. 2. Hypertension. 3. Anxiety. 4. Chronic smoker. 5. Overweight. PAST SURGICAL HISTORY Cervical disc surgery, C7. MEDICATIONS 1. Ambien. 2. Buspirone. 3. Magnesium. 4. Vitamin D. 5. Selenium. 6. Chlorthalidone. 7. Diltiazem. 8. Lisinopril. 9. Methimazole. ALLERGIES ATENOLOL. FAMILY HISTORY Mother with heart disease. Both parents with heart disease. No history of stroke or aneurysm. Sister is diabetic. SOCIAL HISTORY Smokes 1/2 pack per day. Denies alcohol or drug abuse. PHYSICAL EXAMINATION GENERAL: Awake, alert. Sits in bed comfortably having her breakfast with her sister at the bedside. Not in apparent distress. HEENT: Atraumatic, normocephalic. Intact vision. Intact hearing. NECK: No carotid bruits. Supple. CARDIOVASCULAR: Regular rate and rhythm. RESPIRATORY: Clear to auscultation. No wheezes. ABDOMEN: Soft nontender. Not distended. EXTREMITIES: No swelling, tenderness, cyanosis or clubbing. NEUROLOGICAL: Awake, alert, oriented to time, person and place. No dysarthria , no dysphasia. Cranial nerves II-XII are grossly intact. Pupils are 3 mm bilaterally, reacting to light and accommodation. No ptosis. Intact facial muscles. No facial asymmetry. Intact facial sensation. No nystagmus, no diplopia. Motor examination 5/5 bilateral and symmetrical throughout. Normal tone. No abnormal movement. Lower extremities 5/5 bilateral and symmetrical. No abnormal movement. Normal tone. Finger-nose and heel-pineda is intact. Sensation is intact throughout. PSYCHIATRIC: Normal mood and behavior. No abnormal hallucinations or delusions. DIAGNOSTIC TESTING LABS WBC 7.8, hemoglobin 14.3, platelets 179. Sodium 138, potassium initially 3.2, currently 3.6; anion gap 9, BUN 9, creatinine 12, calcium 8.7, magnesium 2.3. LFTs normal. Abnormal lipid profile - Elevated triglycerides, total cholesterol and LDL. TSH is normal. DIAGNOSTIC IMAGING - Head CT scan without contrast is unremarkable. - Brain MRI without contrast, negative. No evidence of an acute infarction. - Head MRA without contrast revealed no evidence of vasal truncation or aneurysm. Incomplete viejas of [place]. No flow was seen in the RON or right PCOM. - Carotid ultrasound revealed no significant carotid flow limiting stenosis. Antegrade vertebral artery flow bilaterally. DIAGNOSTIC IMPRESSIONS 1. Stuttering/slurring of speech. 2. Possible TIA. 3. Hypertension. 4. Anxiety. 5. Hyperlipidemia. PLAN 1. Examination is nonfocal and neurological investigations were unremarkable other than incomplete flow that was incidentally found on the head MRA in the anterior RON and right PCOM. May need CTA head as this is a more sensitive test than MRA for verification and clarification. This may be an anatomical variation. 2. Followup with primary care physician for tight control of blood pressure and HLD. 3. Statin. 4. Aspirin 81 mg. 5. Please call for questions. Thank you for the opportunity to participate in the care of the patient. MD NENA Haynes/SSB /12:34 PM /12:45 PM [email or web address]
[2017-04-08 13:17] VITALS: PULSE 73
--- NOTE | 2017-04-08 14:02 | MG ---
cc: SUSANA POWELL M.D. Lab No: Date: Age: Sex: F INDICATION An EEG was obtained on this 52-year-old patient being evaluated for speech difficulty. The patient is described as awake during the study. DESCRIPTION There is 10-12 per second alpha rhythms posteriorly. There are beta rhythms centrally and frontally predominantly. There is no change with hyperventilation. Photic stimulation shows a bilateral driving response. INTERPRETATION Normal awake EEG. Susana Powell MD OFC/BT /1:37 PM /8:22 AM
--- NOTE | 2017-04-08 14:20 | HHI.DCPOC ---
Discharge Care Plan Diagnosis: (1) Broca dysphasia Goals to Promote Your Health * To prevent worsening of your condition and complications * To maintain your health at the optimal level Directions to Meet Your Goals Take your medications as prescribed Follow your dietary instruction Follow activity as directed Keep your appointments as scheduled Take your immunizations and boosters as scheduled If your symptoms worsen call your PCP, if no PCP go to Urgent Care Center or Emergency Room Smoking is Dangerous to Your Health. Avoid second hand smoke Call the 24-hour hour crisis hotline for domestic abuse at Matt Howard MD R2 Apr 08, 2017 14:20
[2017-04-08] MEDS ORDERED: ASPI81 PO (14:22)
[2017-04-08] MEDS ORDERED: PRAV40TA PO (14:22)
--- NOTE | 2017-04-08 17:56 | EKG ---
Date Performed: 04/07/2017 Time Performed: 16:31:38 PTAGE: 52 years EKG: Sinus rhythm INCOMPLETE RIGHT BUNDLE BRANCH BLOCK BORDERLINE ECG NO PREVIOUS TRACING DOCTOR: Brian Siddiqui Interpretating Date/Time 04/08/2017 17:54:30
[2017-04-11] MEDS ORDERED: ASPI81 PO (09:14)
== END 2017-04-08 15:34 | disposition home or self-care (01) ==
LOC: NEPC 15:54 → NEDA 18:46 → NEPFCDU 20:54
PROVIDERS: ADMIT Family Medicine; ATTEND Family Medicine
DX: R47.02 Dysphasia (principal); R47.01 Aphasia; E87.6 Hypokalemia; I10 Essential (primary) hypertension; I45.10 Unspecified right bundle-branch block; E78.00 Pure hypercholesterolemia, unspecified; E05.90 Thyrotoxicosis, unspecified without thyrotoxic crisis or storm; E03.9 Hypothyroidism, unspecified; F41.9 Anxiety disorder, unspecified; F17.200 Nicotine dependence, unspecified, uncomplicated; E66.9 Obesity, unspecified; Z68.37 Body mass index [BMI] 37.0-37.9, adult; Z79.899 Other long term (current) drug therapy
CPT/HCPCS: 70450; 70544; 70551; 80053; 80061; 81001; 82550; 83036; 83735; 84443; 84484; 85025; 85610; 92523; 92610; 93005; 93880; 95819; 97161; 97166; 99285; G0378; G8987; G8988; G8989; G8996; G8997; G8998; G9174; G9175; G9176; J1650